=== PATIENT | female | born 1980 | race Caucasian/White ===

== ENCOUNTER 2020-04-10 09:58 | Inpatient (IN) | payer BC, OTHER ==
[2020-04-05 14:57] VITALS: BMI 29.0
[2020-04-10] MEDS ORDERED: METHYLERGONOVINE 0.2 MG/ML 1 ML AMP IM PRN (10:04)
[2020-04-10] MEDS ORDERED: LIDOCAINE 0.5% (PF) 5 MG/ML (50 ML SDV) SQ PRN (10:04)
[2020-04-10] MEDS ORDERED: TERBUTALINE 1 MG/ML VIAL SQ PRN (10:04)
[2020-04-10] MEDS ORDERED: CARBOPROST TROMETHAMINE 250 MCG/ML 1 ML AMP IM PRN (10:04)
[2020-04-10] MEDS ORDERED: OXYTOCIN 10 UNIT/ML 1 ML VIAL IM PRN (10:04)
[2020-04-10] MEDS ORDERED: CLINDAMYCIN 900 MG in DEXTROSE 5% IN WATER 50 ML IVPB ONE ×2 (10:14)
[2020-04-10] MEDS ORDERED: CITRIC ACID-SODIUM CITRATE 15 ML CUP PO ONE (10:14)
[2020-04-10] MEDS ORDERED: LACTATED RINGERS 1,000 ML IV SCH ×2 (10:15→13:00)
[2020-04-10 10:31] LABS: Glucose,Whole Blood 77 mg/dL (75-99)
[2020-04-10] MEDS ORDERED: GENTAMICIN 340 MG in SODIUM CHLORIDE 0.9% 100 ML IVPB ONE (10:45)
[2020-04-10 10:51] LABS: Basophils % (A) 0 %; Eosinophils # (A) 0.2 k/uL (0-0.7); Eosinophils % (A) 2 %; HGB 12.7 gm/dL (11.4-16.0); Lymphocytes # (A) 2.5 k/uL (1.0-4.8); Lymphocytes % (A) 19 %; MCH 31.8 pg (25.0-35.0); MCHC 33.4 g/dL (31.0-37.0); MCV 95.2 fL (80.0-100.0); Mean Platelet Volume 7.7; Monocytes # (A) 0.6 k/uL (0-1.0); Monocytes % (A) 4 %; Neutrophils # (A) 9.4 k/uL (1.3-7.7); Neutrophils % (A) 73 %; Platelet Count 220 k/uL (150-450); RBC 3.99 m/uL (3.80-5.40); RDW 12.6 % (11.5-15.5); WBC 12.8 k/uL (3.8-10.6)
[2020-04-10] MEDS ORDERED: ePHEDrine SULFATE/0.9% NACL/PF 50 MG/5 ML SYRINGE IV ONE (12:01)
[2020-04-10] MEDS ORDERED: PHENYLEPHRINE-0.9% NACL SYG 1 MG/10 ML SYRINGE ONE (12:01)
[2020-04-10] MEDS ORDERED: NALBUPHINE 10 MG/ML (1 ML AMP) ONE (12:01)
[2020-04-10] MEDS ORDERED: ONDANSETRON 4 MG/2 ML VIAL ONE (12:01)
[2020-04-10] MEDS ORDERED: KETOROLAC 15 MG/ML 1 ML VIAL ONE (12:01)
[2020-04-10] MEDS ORDERED: MORPHINE SULFATE (PF) 0.3 MG/0.3 ML SYR ONE (12:01)
[2020-04-10] MEDS ORDERED: ONDANSETRON 4 MG/2 ML VIAL IVP PRN (12:53)
[2020-04-10] MEDS ORDERED: HYDROcodone/APAP 7.5-325MG 1 EACH TAB PO PRN (12:53)
[2020-04-10] MEDS ORDERED: diphenhydrAMINE 50 MG/ML 1 ML VIAL IVP PRN ×2 (12:53)
[2020-04-10] MEDS ORDERED: diphenhydrAMINE 50 MG CAP PO PRN (12:53)
[2020-04-10] MEDS ORDERED: SIMETHICONE 80 MG CHEWABLE PO PRN (12:53)
[2020-04-10] MEDS ORDERED: diphenhydrAMINE 25 MG CAP PO PRN (12:53)
[2020-04-10] MEDS ORDERED: NALOXONE 0.4 MG/ML 1 ML VIAL IV PRN (12:53)
[2020-04-10] MEDS ORDERED: ZOLPIDEM 5 MG TAB PO PRN (12:53)
[2020-04-10] MEDS ORDERED: HYDROcodone/APAP 5-325MG 1 EACH TAB PO PRN (12:53)
[2020-04-10] MEDS ORDERED: METOCLOPRAMIDE 5 MG/ML 2 ML VIAL IVP PRN (12:53)
[2020-04-10] MEDS ORDERED: ACETAMINOPHEN TAB 325 MG TAB PO PRN (12:53)
[2020-04-10] MEDS ORDERED: OXYTOCIN 20 UNITS/1000 ML NS 1,000 ML IV SCH (13:00)
--- NOTE | 2020-04-10 13:01 | P.HPOB ---
History of Present Illness H&P Date: 04/10/20 Chief Complaint: 39 and 0/7 weeks, previous section, undesired ursula dela cruz The patient is a 39-year-old 4 para [id number] admitted at 39-0/7 weeks as established by a 7 week ultrasound. She is admitted for repeat low transverse section having undergone previous section requesting repeat. She does fall into the category of advanced maternal age and had a negative screen for trisomy. She also was found to have gestational diabetes and had exc ellent sugar control with diet alone. Her was otherwise uncomplicated. She did express an interest in having intraoperative tubal ligation with Filshie clips and signed consent to that effect understanding the risks and complications as well as the failure rate. Obstetrical history: 4 para 1112 with 1 normal spontaneous vaginal delivery followed by a delivery at 36 weeks. Current statistics are listed in history present illness. EDC of 04/17/2020 was est ablished by seven-week ultrasound. Laboratory workup demonstrates a blood type of O+ with a negative antibody screen. Rubella status is immune. The remainder of the laboratory workup was within normal limits. One hour Glucola was elevated and followed by an elevated three-hour glucose tolerance test making the diagnosis of gestational diabetes. Group B strep status is negative. Gynecologic history: Unremarkable with no history of any infections to include STDs. Review of Systems Review of systems is confined to history of present illness. Past Medical History Past Medical History: Asthma Additional Past Medical History / Comment(s): Gestational diabetes History of Any Multi-Drug Resistant Organisms: None Reported Past Surgical History: Section Past Anesthesia/Blood Transfusion Reactions: No Reported Reaction Past Psychological History: No Psychological Hx Reported Smoking Status: Former smoker Past Alcohol Use History: None Reported Additional Past Alcohol Use History / Comment(s): quit smoking for Past Drug Use History: None Reported Medications and Allergies Home Medications Medication Instructions Recorded Confirmed Type Cetirizine HCl [Zyrtec] 10 mg PO DAILY 02/08/20 04/05/20 History Pnv No.95/Ferrous Fum/Folic AC 1 each PO DAILY 02/08/20 04/05/20 History [ Multivitamin Tablet] Acetaminophen Tab [Tylenol] 650 mg PO Q6H PRN 04/05/20 04/05/20 History Albuterol Inhaler [Ventolin Hfa 2 puff INHALATION RT-QID PRN 04/05/20 04/05/20 History Inhaler] diphenhydrAMINE [Benadryl] 25 mg PO BID PRN 04/05/20 04/05/20 History Allergies Allergy/AdvReac Type Severity Reaction Status Date / Time Penicillins Allergy Unknown Verified 04/05/20 14:46 Exam Vital Signs Temp Pulse Resp BP 04/10/20 10:03 97.8 F 72 16 113/60 Intake and Output 04/09/20 04/10/20 04/10/20 22:59 06:59 14:59 Other: Weight 83.915 kg In general, this is a well-developed, well-nourished white female in no acute distress. Her heart has a regular rhythm and rate without murmur. Her lungs are clear to auscultation bilaterally in all jenkins. Her abdomen is gravid, nondistended, has normal active bowel sounds, is soft, nontender, and without any palpable masses aside from uterine fundus. Her extremities are without any cyanosis, clubbing, or edema and are nontender to palpation bilaterally. Digital cervical examination is deferred. Results Result Diagrams: 04/10/20 10:32 Abnormal Lab Results - Last 24 Hours (Table) 04/10/20 Range/Units 10:32 WBC 12.8 H (3.8-10.6) k/uL Neutrophils # 9.4 H (1.3-7.7) k/uL Assessment and Plan (1) Previous section Current Visit: Yes Status: Acute Code(s): Z98.891 - HISTORY OF UTERINE SCAR FROM PREVIOUS SURGERY SNOMED Code(s): 439915985 (2) Family planning Current Visit: Yes Status: Acute Code(s): Z30.09 - ENCOUNTER FOR OTH GENERAL CNSL AND ADVICE ON CONTRACEPTION SNOMED Code(s): 695650963 Plan: The patient is admitted for repeat low transverse section with intraoperative bilateral tubal occlusion using Filshie clips. Risks and compl ications of the procedures as well as the permanent nature of tubal ligation and its failure rate have been thoroughly discussed. She has understood and agreed to proceed.
--- NOTE | 2020-04-10 13:06 | P.OP ---
Date of Procedure: 04/10/20 Preoperative Diagnosis: #1. 39-0/7 weeks, previous section #2. Undesired fertility Postoperative Diagnosis: Same Procedure(s) Performed: #1. Repeat low transverse section #2. Intraoperative bilateral tubal occlusion with Filshie clips Anesthesia: spinal Surgeon: Wali Najera [employer] Tutor #1: Hermila Lindo Estimated Blood Loss (ml): 425 IV fluids (ml): 900 Urine output (ml): 200 Pathology: none sent Condition: stable Disposition: floor Operative Findings: The patient was taken to the operating room where she was delivered of a viable 8 lbs. 2 oz. baby girl with Apgars of 7 at 1 minute and 9 at 5 minutes. The uterus, tubes, and ovaries were entirely normal to inspection. The placenta was delivered manually, intact, and grossly normal with a grossly normal three- vessel cord. Description of Procedure: The patient was prepped and draped in usual fashion after spinal anesthesia was administered by the anesthesiologist. A Pfannenstiel incision was made through pre-existing scar and extended into the abdominal cavity without difficulty. The bladder peritoneum was noted to be scarred relatively high was therefore elevated, incised, and reflected distally. A 270 incision was made in the transverse plane of the lower uterine segment to enter the uterus at which time clear fluid was noted. The incision was extended in both directions using the bandage scissors. The head was delivered up and through the incision where the nose and mouth were thoroughly suctioned. There was a loose nuchal cord 1 which was reduced prior to delivery of the infant. The remainder of the infant was then delivered onto the field where the cord was doubly clamped, cut, and the passed resuscitative measures with weight and Apgars as noted abo ve. The placenta was delivered manually and intact as noted above. The uterus was exteriorized and the interior cavity of the uterus swept of any remaining placental or membranous fragments. The margins of the incision were grasped with Nesbitt clamps and the incision closed in a single running locking stitch of 0 chromic catgut from margin to margin. Hemostasis appeared excellent. The posterior cul-de-sac was suctioned using a guard and the uterus replaced within the abdominal cavity. The uterine and ovarian findings were normal as noted above. The gutters were swept of any remaining blood, fluid, or clot. The incision was reexamined and one small point of bleeding at the right angle of the incision was made hemostatic with the Bovie. Once hemostasis was established, the parietal peritoneum was loosely reapproximated and layer of muscles examined and found to be hemostatic. The fascia was closed with 2 running stitches of 0 Vicryl proceeding from the lateral margins to the midpoint. Subcutaneous tissues were irrigated and made hemostatic with the Bovie and not closed as there was less than 2 cm depth. The skin was reapproximated with a running subcuticular stitch of 4-0 Vicryl from margin to margin followed by half-inch Steri-Strips placed with Mastisol. Estimated blood loss for the case was approximately 425 mL. There were no complications. All sponge, instrument, and needle counts were correct. The patient tolerated the procedure well and proceeded to the recovery room in stable condition. Both mother and are resting comfortably in recovery.
[2020-04-10] MEDS: KETOROLAC 15 MG/ML 1 ML VIAL IVP PRN ×2 (15:55→22:18)
[2020-04-11] MEDS: SENNOSIDES-DOCUSATE SODIUM 1 EACH TAB PO SCH ×3 (00:44→20:20)
[2020-04-11] MEDS: KETOROLAC 15 MG/ML 1 ML VIAL IVP PRN (04:04)
--- NOTE | 2020-04-11 06:10 | P.PN ---
Progress Note - Text Date: 04/11/2020 Time: 06 The patient is status post section Vital signs stable VAS: 0-10 Patient has no complaints of pain. The patient incurred some minimal itching yesterday, this itching is now subsiding. Pain meds to be managed by service.
[2020-04-11 06:15] LABS: Basophils % (A) 0 %; Eosinophils # (A) 0.1 k/uL (0-0.7); Eosinophils % (A) 1 %; HCT 34.1 % (34.0-46.0); HGB 11.4 gm/dL (11.4-16.0); Lymphocytes # (A) 1.7 k/uL (1.0-4.8); Lymphocytes % (A) 12 %; MCH 32.1 pg (25.0-35.0); MCHC 33.3 g/dL (31.0-37.0); MCV 96.2 fL (80.0-100.0); Mean Platelet Volume 8.2; Monocytes # (A) 0.7 k/uL (0-1.0); Monocytes % (A) 5 %; Neutrophils # (A) 11.3 k/uL (1.3-7.7); Neutrophils % (A) 81 %; Platelet Count 183 k/uL (150-450); RBC 3.55 m/uL (3.80-5.40); RDW 12.7 % (11.5-15.5); WBC 13.9 k/uL (3.8-10.6)
--- NOTE | 2020-04-11 08:08 | P.PNOBGPC ---
Subjective - Subjective Patient reports: Reports appetite normal, Reports voiding normally, Reports pain well controlled, Reports ambulating normally : doing well Objective - Vital Signs Latest vital signs: Vital Signs Temp Pulse Resp BP Pulse Ox 04/11/20 04:00 98.7 F 69 16 108/69 04/11/20 00:00 98.0 F 69 16 98/64 04/10/20 19:37 98.2 F 62 16 97/48 04/10/20 15:16 97.3 F L 54 L 16 94/54 04/10/20 14:48 96.9 F L 52 L 18 109/50 04/10/20 14:18 55 L 16 115/54 04/10/20 13:48 70 16 101/58 98 04/10/20 13:33 77 16 110/60 98 04/10/20 13:18 60 16 112/64 96 04/10/20 13:03 68 18 116/74 100 04/10/20 12:48 96.4 F L 78 18 114/56 04/10/20 10:03 97.8 F 72 16 113/60 Intake and Output 04/10/20 04/11/20 04/11/20 22:59 06:59 14:59 Output Total 150 Balance -150 Output: Urine 150 - Exam Extremities: Present: normal Abdomen: Present: normal appearance, soft. Absent: distention, tenderness Incision: Present: normal, dry, intact Uterus: Present: normal, firm (The uterine fundus is tonic an appropriate tender just below the umbilicus.) - Labs Labs: Abnormal Lab Results - Last 24 Hours (Table) 04/10/20 04/11/20 Range/Units 10:32 05:57 WBC 12.8 H 13.9 H (3.8-10.6) k/uL RBC 3.55 L (3.80-5.40) m/uL Neutrophils # 9.4 H 11.3 H (1.3-7.7) k/uL Assessment and Plan (1) Previous section Current Visit: Yes Status: Acute Code(s): Z98.891 - HISTORY OF UTERINE SCAR FROM PREVIOUS SURGERY SNOMED Code(s): 028152348 (2) Family planning Current Visit: Yes Status: Acute Code(s): Z30.09 - ENCOUNTER FOR OT GENERAL CNSL AND ADVICE ON CONTRACEPTION SNOMED Code(s): 177785563 (3) S/P section Current Visit: Yes Status: Acute Code(s): Z98.891 - HISTORY OF UTERINE SCAR FROM PREVIOUS SURGERY SNOMED Code(s): 776640419 Plan: Continue routine postoperative care. I have encouraged the patient Mary Kay in the hallways routinely. Assuming no complications, the patient will likely be discharged home tomorrow morning.
[2020-04-11] MEDS: IBUPROFEN 600 MG TAB PO PRN ×2 (16:47→23:13)
[2020-04-12 03:43] VITALS: RESP 16
[2020-04-12] MEDS: IBUPROFEN 600 MG TAB PO PRN (07:32)
[2020-04-12] MEDS: SENNOSIDES-DOCUSATE SODIUM 1 EACH TAB PO SCH (07:32)
[2020-04-12 08:42] VITALS: BP 113/66; PULSE 54; TEMP 97.8
--- NOTE | 2020-04-12 08:51 | P.DS ---
Providers Date of admission: 04/10/20 09:58 Expected date of discharge: 04/12/20 Attending physician: Wali Najera Primary care physician: Stated None - Discharge Diagnosis(es) (1) Previous section Current Visit: Yes Status: Acute (2) Family planning Current Visit: Yes Status: Acute (3) S/P section Current Visit: Yes Status: Acute Hospital Course: The patient is a 39-year-old 4 para 0112 admitted at 39-0/7 weeks by good dating parameters perches admitted for repeat low transverse section with intraoperative bilateral tubal occlusion with Filshie clips. She fell into the category of advanced maternal age and had negative screening for trisomy. She additionally was found gestational diabetes and had great sugar control during the entire with diet. Her was otherwise uncomplicated. On labor and delivery, she was taken the operating room where she was delivered of a viable 8 lbs. 2 oz. baby girl with Apgars of 7 at 1 minute and 9 at 5 minutes. Her postoperative course was unremarkable with vital signs being stable and her temperature was afebrile throughout. She was deemed stable for discharge on postoperative day #2 was discharged home to follow-up in the office in 2 weeks for an incision check and 6 weeks routinely. Discharge instructions included calling for any significantly increased bleeding or foul- smelling lochia, significantly increased fever or abdominal pain, perineal complaints, breast complaints, incisional complaints, or anything else that concerned her. She was additionally instructed to have nothing in the vagina for at least 6 weeks time to include intercourse and to abstain from any heavy lifting over the same period of time. She was lastly instructed to do no driving until off of all pain medications or 2 weeks' time, whichever came first. She understood her instructions and agrees follow up as noted above. Discharge medications included [id number] analgesic pain medications as needed. She was provided with prescription for [place] 5/325 mg, 1-2 by mouth every 6 hours when necessary pain, #20 dispensed with no refills. Maternal blood type is O+ and rubella status is immune. Discharge hemoglobin and hematocrit were 11.4 and 34.1 respectively. Procedures: #1. Repeat low transverse section #2. Intraoperative bilateral tubal occlusion with Filshie clips Patient Condition at Discharge: Stable Plan - Discharge Summary Discharge Rx Participant: No New Discharge Prescriptions: No Action Cetirizine HCl [Zyrtec] 10 mg PO DAILY Pnv No.95/Ferrous Fum/Folic AC [ Multivitamin Tablet] 1 each PO DAILY diphenhydrAMINE [Benadryl] 25 mg PO BID PRN PRN Reason: allergies Albuterol Inhaler [Ventolin Hfa Inhaler] 2 puff INHALATION RT-QID PRN PRN Reason: Dyspnea Acetaminophen Tab [Tylenol] 650 mg PO Q6H PRN PRN Reason: Pain Discharge Medication List Cetirizine HCl [Zyrtec] 10 mg PO DAILY 02/08/20 [History] Pnv No.95/Ferrous Fum/Folic AC [ Multivitamin Tablet] 1 each PO DAILY 02/08/20 [History] Acetaminophen Tab [Tylenol] 650 mg PO Q6H PRN 04/05/20 [History] Albuterol Inhaler [Ventolin Hfa Inhaler] 2 puff INHALATION RT-QID PRN 04/05/20 [History] diphenhydrAMINE [Benadryl] 25 mg PO BID PRN 04/05/20 [History] Follow up Appointment(s)/Referral(s): Wali Najera MD [STAFF PHYSICIAN] - 2 Weeks Discharge Disposition: HOME SELF-CARE
== END 2020-04-12 10:05 | disposition home or self-care (01) | DRG 785 ==
LOC: 4FBP 09:58
PROVIDERS: ADMIT Obstetrics & Gynecology; ATTEND Obstetrics & Gynecology
PROC: 0UL70CZ Occlusion of Bilateral Fallopian Tubes with Extraluminal Device, Open Approach (ICD-10-PCS; principal; 2020-04-10 12:00)
PROC: 10D00Z1 Extraction of Products of Conception, Low, Open Approach (ICD-10-PCS; principal; 2020-04-10 12:00)
DX: O34.211 Maternal care for low transverse scar from previous cesarean delivery (principal); O24.429 Gestational diabetes mellitus in childbirth, unspecified control; O99.52 Diseases of the respiratory system complicating childbirth; J45.909 Unspecified asthma, uncomplicated; Z30.2 Encounter for sterilization; Z37.0 Single live birth; Z3A.39 39 weeks gestation of pregnancy; Z87.891 Personal history of nicotine dependence; Z88.0 Allergy status to penicillin
CPT/HCPCS: 85025; 86850; 86900; 86901